=== PATIENT | female | born 2000 ===

== ENCOUNTER 2020-01-31 02:57 | Emergency (ER) | payer OTHER, SELFPAY ==
--- NOTE | 2020-01-31 08:27 | RAD ---
Right wrist 3 views HISTORY: Right wrist injury. FINDINGS: Scaphoid waist and ulnar styloid are intact. Mild ulna positive variant. Small bone island noted within the distal scaphoid pole. Smoothly marginated cortical prominence along the lateral margin of the distal radial metaphysis has the appearance of the physeal scar. No fractures are reliably demonstrated. IMPRESSION: No acute osseous abnormalities are reliably demonstrated. In the setting of pain and clin ical suspicion, however, please consider immobilization and short-term radiographic follow-up.
== END 2020-01-31 06:10 | disposition home or self-care (01) ==
LOC: ERS 02:57
DX: S52.501A Unspecified fracture of the lower end of right radius, initial encounter for closed fracture (principal); F41.9 Anxiety disorder, unspecified; F31.9 Bipolar disorder, unspecified; W01.0XXA Fall on same level from slipping, tripping and stumbling without subsequent striking against object, initial encounter